=== PATIENT | female | born 1960 | race Caucasian/White ===

== ENCOUNTER → 2023-03-24 | Outpatient (CLI) | payer MEDICARE, MEDICAID ==
[~2023-03-24] VITALS: Ht 162.6 cm; Wt 147.7 kg
[~2023-03-24] MED LIST: APIX5TAB2 PO; HYDR25TA4 PO; LIDOCAINE 1% INJ 10 ML VIAL INJ ONE; MTP50T PO; MULT-974 PO; SERT25TA5 PO; TELM1TAB27 PO
--- NOTE | 2023-03-24 15:25 | Diagnostic Imaging Report ---
INDICATION: Left breast calcifications. Patient presents for stereotactic biopsy. PROCEDURE: Patient was brought to the stereotactic suite and placed in the chair in a sitting upright position. Left breast was positioned mediolateral. The cluster of microcalcifications in the upper inner aspect of the left breast were stereotactically targeted. All images were viewed on dedicated workstation. The medial left breast was then prepped and draped in the usual sterile fashion. A small amount of 1% lidocaine was utilized for local anesthesia. 8-gauge vacuum-assisted needle was advanced from a mediolateral approach and placed per stereotactic coordinates. Four core biopsies were obtained with a vacuum-assisted device. Specimen radiograph was obtained demonstrating a cluster within sample labeled #2. A marker clip was then deployed. The needle was removed and hemostasis was obtained. A 2D CC and ML post procedure mammogram was obtained on a dedicated mammographic unit to evaluate clip location. Images demonstrate the marker clip in the medial left breast. The patient tolerated the procedure well and left the Department in stable condition. IMPRESSION: Successful stereotactic biopsy of left breast calcifications utilizing the 8-gauge vacuum-assisted device. Pathology results are currently pending. Dictated by: Dictated on workstation # [id number]
--- NOTE | 2023-03-24 17:01 | Diagnostic Imaging Report ---
INDICATION: Right breast calcifications. PROCEDURE: The patient presents for stereotactic biopsy. The patient was brought to the stereotactic suite, placed on a chair in a sitting upright position. The right breast was positioned medial lateral. The cluster of microcalcifications in the lower inner aspect of the right breast were stereotactically targeted. All images were viewed on a dedicated workstation. The medial right breast was prepped and draped in the usual sterile fashion. A small amount of 1% lidocaine was utilized for local anesthesia. The 18-gauge vacuum-assisted needle was advanced from a mediolateral approach and placed per stereotactic coordinates. Four core biopsies were obtained with a vacuum-assisted device. A marker clip was then deployed. Specimen radiograph demonstrates numerous calcifications within samples labeled 1, 2 and 3. Needle was removed and hemostasis was obtained. The patient tolerated the procedure well. The patient obtained a post procedure 2-D CC and ML mammogram on a dedicated mammographic machine to evaluate clip placement. Images demonstrate the marker clip in the medial right breast. IMPRESSION: Successful stereotactic biopsy of the cluster of microcalcifications in the lower inner right breast utilizing the 8-gauge vacuum-assisted device. Pathology results are currently pending. Dictated by: Dictated on workstation # [id number]
== END ==
LOC: RAD 12:39
PROVIDERS: ATTEND Family Medicine
DX: R92.0 Mammographic microcalcification found on diagnostic imaging of breast (principal)
CPT/HCPCS: 19081